=== PATIENT | female | born 1950 | race Caucasian/White ===

== ENCOUNTER 2022-08-24 16:00 | Emergency (ER) | payer SELFPAY ==
[2022-08-24] VITALS (33 sets, daily range): BP systolic 177–225; BP diastolic 81–133; PULSE 78–108; RESP 18; TEMP 36.5; O2SAT 91–100; BMI 27.4
--- NOTE | 2022-08-24 18:20 | ED.BACK ---
HPI - Back Pain/Injury General Chief Complaint: Back Pain/Injury Stated Complaint: Back pain Time Seen by Provider: 08/24/22 17:53 Source: patient and family History of Present Illness HPI Narrative: 72-year-old female nonsmoker presents with multiple family members in the chief complaint of gradually worsening lumbar pain over the past month. She states she felt a pulling sensation when she was reaching up above her head to grab a robe about 1 month ago and since then has had increasing pain. She states it seems to be much better when she lies flat but any motion worsens things. She denies any dramatic or direct trauma. She denies numbness, tingling or weakness. She denies loss of control of bowel or bladder. She denies any fever or chills and takes no blood thinners. Her pain is worse when she moves and improves with rest. She does have some radiation from her low back into her bilateral hips. She is not taken any medications for help. Related Data Previous Rx's Medication Instructions Recorded amlodipine 5 mg tablet 5 mg PO DAILY #30 tabs 08/24/22 cyclobenzaprine 10 mg tablet 10 mg PO TID PRN muscle spasm #20 08/24/22 tabs gabapentin 300 mg capsule 300 mg PO BEDTIME #30 caps 08/24/22 hydrocodone 5 mg-acetaminophen 325 1 tab PO Q4-6H PRN pain #20 tabs 08/24/22 mg tablet ketorolac 10 mg tablet 10 mg PO Q6H PRN pain #14 tabs 08/24/22 lidocaine 5 % topical patch 1 patch topical DAILY #15 ea 08/24/22 (Lidoderm) Allergies Allergy/AdvReac Type Severity Reaction Status Date / Time Opioids - Morphine Analogues AdvReac Intermediate Gastrointestinal Verified 08/24/22 16:20 Upset Penicillins AdvReac Intermediate Swelling Verified 08/24/22 16:20 of the Eye Review of Systems Review of Systems Narrative: GENERAL: Denies chills, fatigue, malaise, fever, sweats. HEENT: Denies sinus pain, ear pain, sore throat, difficulty swallowing, dizziness. RESPIRATORY: Denies dyspnea, cough, wheezing, hemoptysis, sputum. CARDIOVASCULAR: Denies chest pain, palpitations, orthopnea, edema, GASTROINTESTINAL: Denies nausea, vomiting, abdominal pain, diarrhea, constipation, melena. : Denies dysuria, frequency, incontinence, hematuria, urinary retention. MUSCULOSKELETAL: See HPI SKIN: Denies rash, skin lesions, or other NEUROLOGIC: Denies weakness, headache, numbness, change in speech, confusion, seizures, incoordination. PSYCHIATRIC: No concerning psychosocial issues. 12 point review of systems is negative except for those stated above Patient History Social History Smoking Status: Never smoker Smoking Status: Never smoker alcohol intake frequency: holidays/special occasions only Substance Use Type: marijuana Exam Narrative Exam Narrative: GENERAL: 72[] year old patient appears stated age. Well-developed patient, in mild distress. HEAD: Atraumatic. Normocephalic. EYES: Pupils equal round and reactive. Extraocular motions intact. No scleral icterus. No injection or drainage. ENT: Nose without bleeding, purulent drainage. Throat without erythema, tonsillar hypertrophy or exudate. Airway patent. NECK: Trachea midline. Non tender CARDIOVASCULAR: Regular rate and rhythm without murmurs, gallops, or rubs. RESPIRATORY: Clear to auscultation. Breath sounds equal bilaterally. No wheezes, rales, or rhonchi. GASTROINTESTINAL: Abdomen soft, non-tender, nondistended. EXTREMITIES: No edema or joint tenderness. BACK: feeder tender but free of any obvious external abnormalities. Patient exam notes decreased range of motion and muscle spasm, but no CVA tenderness, or vertebral point tenderness. There are no symptoms of cauda equina such as saddle anesthesia, and decreased reflexes, decreased sensation or strength. NEURO: AOx3. SKIN: No rash or erythema of visible areas Initial Vital Signs Initial Vital Signs: Vital Signs Temperature 97.7 F 08/24/22 16:14 Pulse Rate 108 H 08/24/22 16:14 Respiratory Rate 18 08/24/22 16:14 Blood Pressure 177/98 H 08/24/22 16:14 Pulse Oximetry 95 08/24/22 16:14 Oxygen Delivery Method Room Air 08/24/22 16:14 Course Orders Ordered: Discontinued Medications Acetaminophen (Acetaminophen 325 Mg Tablet) 975 mg PO NOW ONE Stop: 08/24/22 17:55 Last Admin: 08/24/22 18:40 Dose: 975 mg Documented By: HAYLEY Hydrocodone Bitart/Acetaminophen (Hydrocodone/Acet 5/325 Prepack) 1 bottle MISC SEEINSTR ONE Stop: 08/24/22 22:02 Last Admin: 08/24/22 22:27 Dose: 1 bottle Documented By: FREDY Amlodipine Besylate (Amlodipine 5 Mg Tablet) 10 mg PO NOW ONE Stop: 08/24/22 20:09 Last Admin: 08/24/22 20:22 Dose: 10 mg Documented By: HAYLEY Cyclobenzaprine HCl (Cyclobenzaprine 10 Mg Prepack) 1 bottle MISC SEEINSTR ONE Stop: 08/24/22 22:02 Last Admin: 08/24/22 22:28 Dose: 1 bottle Documented By: FREDY Dexamethasone (Dexamethasone 10 Mg/Ml Vial) 10 mg IV NOW ONE Stop: 08/24/22 18:27 Last Admin: 08/24/22 18:39 Dose: 10 mg Documented By: HAYLEY Gabapentin (Gabapentin 300 Mg Capsule) 300 mg PO NOW ONE Stop: 08/24/22 18:27 Last Admin: 08/24/22 18:39 Dose: 300 mg Documented By: HAYLEY Hydromorphone HCl (Hydromorphone 0.5 Mg Inj) 0.5 mg IV NOW ONE Stop: 08/24/22 19:11 Last Admin: 08/24/22 19:20 Dose: 0.5 mg Documented By: HAYLEY Ketorolac Tromethamine (Ketorolac 30 Mg/Ml Vial) 15 mg IV NOW ONE Stop: 08/24/22 18:27 Last Admin: 08/24/22 18:39 Dose: 15 mg Documented By: HAYLEY Lidocaine (Lidocaine Patch 1 Each Adh..Patch) 1 each TOP NOW ONE Stop: 08/24/22 18:27 Last Admin: 08/24/22 18:39 Dose: 1 each Documented By: HAYLEY Ondansetron HCl (Ondansetron 4 Mg Odt Prepack) 1 bottle MISC SEEINSTR ONE Stop: 08/24/22 22:02 Last Admin: 08/24/22 22:27 Dose: 1 bottle Documented By: FREDY Vital Signs Vital signs: Vital Signs - 8 hr 08/24/22 21:11 08/24/22 21:11 08/24/22 21:20 Pulse Rate 86 91 H Blood Pressure 204/101 H Pulse Oximetry 92 92 08/24/22 21:20 08/24/22 21:30 08/24/22 21:30 Pulse Rate 82 Blood Pressure 217/102 H 208/93 H Pulse Oximetry 92 08/24/22 21:41 08/24/22 21:41 08/24/22 21:50 Pulse Rate 87 85 Blood Pressure 188/86 H Pulse Oximetry 92 92 08/24/22 21:50 08/24/22 22:00 08/24/22 22:01 Pulse Rate 87 88 Blood Pressure 191/88 H Pulse Oximetry 94 93 08/24/22 22:01 08/24/22 22:11 08/24/22 22:11 Pulse Rate 90 Blood Pressure 208/113 H 203/92 H Pulse Oximetry 93 08/24/22 22:20 08/24/22 22:20 Pulse Rate 95 H Blood Pressure 195/81 H Pulse Oximetry 93 MDM - Back Pain/Injury MDM Narrative Medical decision making narrative: CC: 72-year-old female with severe, worsening low back pain Complicating co-morbidities: Age Data collected from: Patient Medical records reviewed: Prior notes reviewed in our EMR Differential considered, but not limited to: Lumbar radiculopathy versus degenerative change versus epidural abscess versus epidural hematoma versus cauda equina versus other Exam documented above, pertinent findings include: No evidence of cauda equina such as saddle anesthesia, depressed reflexes or measurable lower extremity weakness. Lab Test results independently reviewed as above. Pertinent findings: No significant abnormalities Independently reviewed EKG as above Imaging studies independently reviewed: Lumbar spine without acute osseous abnormalities Treatments: Dilaudid, cyclobenzaprine, gabapentin, Lidoderm, dexamethasone, ketorolac and amlodipine Re-evaluations: Pain significantly improved though not completely resolved Discussion: Patient with back pain since reaching to grab it clothing item. No trauma no fever chills. Cauda equina considered but thought unlikely given history and physical exam. Epidural abscess and epidural hematoma are considered but thought unlikely given history and physical exam. Patient has significant improvement in above-stated therapies Disposition: see below, along with detailed discharge instructions that have been reviewed with patient as well as indications for ED re-evaluation and additional outpatient follow up Discharge Plan Departure Patient Disposition: Home Clinical Impression: Acute back pain Instructions: DI for Low Back Pain Activity Restrictions/Additional Instructions: *You have been diagnosed with [lumbar pain with possible mild radiculopathy, hypertension] *What to do: *Please continue to take your regular medications as directed. [x ] New medication prescriptions sent to your pharmacy: [ [facility]] [ ] New medication written as a paper prescription [ ] No new medications given *Please follow up with your primary care provider in 2-3 days, call for an appointment. Let them know you were seen in the Emergency Department and that we ask that you be seen in follow up. We will electronically transmit a record of today's note if your PCP is in our system *If you do not have a primary care provider please contact the [facility] Resource line at [phone]. They will ask some questions about your medical history and help get you set up with a doctor in the community. *Return to Emergency Department if you should have any new, worsening or concerning symptoms, such as [fever greater than 101 F, shaking chills, worsening pain, persistent vomiting, lower extremity weakness, loss of control of bowel or bladder or other bothersome symptoms] You have been prescribed a short course of narcotic medications. These are potentially dangerous and addictive medications that should be used carefully. While on these medications you cannot drive or operate heavy machinery. Additionally, you cannot sign legal documents or perform any duties such as this. Many people get constipated on narcotic medications so it would be advisable to discuss stool softeners with the pharmacist when you lease picker your prescription. Please understand that we cannot provide further refills of narcotics or controlled substances through the ED and your pain management will need to be through your Primary Care Provider Prescriptions: New cyclobenzaprine 10 mg tablet 10 mg PO TID PRN (Reason: muscle spasm) Qty: 20 0RF hydrocodone-acetaminophen 5-325 mg tablet 1 tab PO Q4-6H PRN (Reason: pain) Qty: 20 0RF ketorolac 10 mg tablet 10 mg PO Q6H PRN (Reason: pain) Qty: 14 0RF lidocaine [Lidoderm] 5 % adhesive patch,medicated 1 patch TOP DAILY Qty: 15 0RF Rx Instructions: leave on most painful area for 12 hrs gabapentin 300 mg capsule 300 mg PO BEDTIME Qty: 30 0RF amlodipine 5 mg tablet 5 mg PO DAILY Qty: 30 0RF Stand Alone Forms: Patient Portal/API
--- NOTE | 2022-08-24 18:26 | DI.RAD.S_ITS ---
PROCEDURE: XR LUMBAR SPINE 2-3V INDICATIONS: severe lumbar pain TECHNIQUE: 3 views of the lumbar spine were acquired. COMPARISON: None. FINDINGS: Bones: 5 [id number] vertebrae are present. There is normal bony alignment. There are age indeterminate anterior compression deformities of the T12, L2, and L3 vertebral bodies. These are favored to be chronic. No definite acute compression fractures of the vertebral bodies. Moderate multilevel lumbar spondylosis and facet arthropathy. No suspicious bony lesions. Soft tissues: Overlying bowel gas pattern is normal. No suspicious soft tissue calcifications. IMPRESSION: Lumbar spine without definite acute osseous abnormalities. Age-indeterminate, but likely chronic anterior compression deformities of the T12, L2, and L3 vertebral bodies. Moderate multilevel lumbar spondylosis. Dictated by: Colt Arellano M.D. on 08/24/2022 at 19:50 Approved by: Colt Arellano M.D. on 08/24/2022 at 19:52
[2022-08-24] MEDS: LIDOCAINE PATCH 1 EACH ADH..PATCH TOP (18:39)
[2022-08-24] MEDS: KETOROLAC 30 MG/ML VIAL 15 MG IV (18:39)
[2022-08-24] MEDS: GABAPENTIN 300 MG CAPSULE PO (18:39)
[2022-08-24] MEDS: DEXAMETHASONE 10 MG/ML VIAL IV (18:39)
[2022-08-24] MEDS: ACETAMINOPHEN 325 MG TABLET 975 MG PO (18:40)
[2022-08-24] MEDS: HYDROMORPHONE 0.5 MG INJ IV (19:20)
[2022-08-24] MEDS: AMLODIPINE 5 MG TABLET 10 MG PO (20:22)
[2022-08-24] MEDS: ONDANSETRON 4 MG ODT PREPACK 1 BOTTLE MISC (22:27)
[2022-08-24] MEDS: HYDROCODONE/ACET 5/325 PREPACK 1 BOTTLE MISC (22:27)
[2022-08-24] MEDS: CYCLOBENZAPRINE 10 MG PREPACK 1 BOTTLE MISC (22:28)
== END 2022-08-24 22:31 | disposition home or self-care (01) ==
PROVIDERS: Emergency Provider Emergency Medicine
DX: M54.50 Low back pain, unspecified (principal)
CPT/HCPCS: 72100; 96374; 96375; 99284; J1100; J1170; J1885